=== PATIENT | male | born 1975 | race African-American/Black ===

== ENCOUNTER 2018-10-07 10:44 | Emergency (ER) | payer MEDICAID ==
[~2018-10-07] VITALS: Ht 182.9 cm; Wt 68.0 kg
--- NOTE | 2018-10-07 10:45 | NUR ---
ED Nurse Note: Patient brought in by ambulance from the street with bilateral feet pain. patient also reports pain on the left chest pain, stomach pain. patient is alert awake x4 ambulatory, breathing unlabored and even.
[2018-10-07 11:16] VITALS: BP 116/72
[2018-10-07 11:19] LABS: APPEARANCE,URINE CLEAR; BILIRUBIN, URINE NEGATIVE (NEGATIVE); GLUCOSE, URINE (UA) NEGATIVE (NEGATIVE); KETONES,URINE NEGATIVE (NEGATIVE); LEUKOCYTE ESTERASE ,URINE 1+ (NEGATIVE); NITRITE,URINE NEGATIVE (NEGATIVE); PH,URINE 5 (4.5-8.0); PROTEIN,URINE NEGATIVE (NEGATIVE); UROBILINOGEN,URINE 4 MG/DL (0.0-1.0)
[2018-10-07 11:20] LABS: BASOPHILS % (AUTO) 0.7 % (0.0-2.0); EOSINOPHILS % (AUTO) 2.3 % (0.0-3.0); HEMATOCRIT 36.2 % (42.0-52.0); HEMOGLOBIN 11.2 G/DL (14.2-18.0); LYMPHOCYTES % (AUTO) 33.4 % (20.0-45.0); MEAN CORPUSCULAR VOLUME 74 FL (80-99); MONOCYTES % (AUTO) 11.1 % (1.0-10.0); NEUTROPHILS % (AUTO) 52.6 % (45.0-75.0); PLATELET COUNT 311 K/UL (150-450); RED BLOOD COUNT 4.85 M/UL (4.70-6.10); RED CELL DISTRIBUTION WIDTH 12.6 % (11.6-14.8); WHITE BLOOD COUNT 5.6 K/UL (4.8-10.8)
[2018-10-07 11:21] LABS: COLOR,URINE YELLOW
[2018-10-07 11:41] LABS: ANION GAP 9 mmol/L (5-15); BLOOD UREA NITROGEN 10 mg/dL (7-18); CALCIUM 8.8 MG/DL (8.5-10.1); CARBON DIOXIDE 28 MMOL/L (21-32); CHLORIDE 108 MMOL/L (98-107); CREATININE 0.8 MG/DL (0.55-1.30); POTASSIUM 4.2 MMOL/L (3.5-5.1); SODIUM 145 MMOL/L (136-145)
[2018-10-07 11:45] LABS: ALANINE AMINOTRANSFERASE 18 U/L (12-78); ALBUMIN/GLOBULIN RATIO 0.8 (1.0-2.7); ALKALINE PHOSPHATASE 108 U/L (46-116); ASPARTATE AMINO TRANSFERASE 15 U/L (15-37); BILIRUBIN,TOTAL 0.2 MG/DL (0.2-1.0)
--- NOTE | 2018-10-07 12:33 | Emergency Room Report ---
History of Present Illness General Chief Complaint: Abdominal Pain Source: Patient Present Illness HPI Disclaimer: Please note that this report is being documented using Pocket technology. This can lead to erroneous entry secondary to incorrect interpretation by the dictating instrument. HPI: 42-year-old male with history of schizophrenia presents by EMS for evaluation of foot pain and abdominal/flank pain. The patient states that he has been having intermittent left upper and lower quadrant abdominal pain for some time now. Cannot fully quantify how long. He is calling a kidney pain and says he has had some intermittent stomach pain as well. Currently states the symptoms are resolved. He states that he had a colonoscopy sometime ago where they found polyps and he was concerned that it might be related to that. He denies history of kidney stones, hematuria, dysuria, penile discharge, testicular pain, nausea, vomiting or diarrhea. Otherwise he has been afebrile, no cough. He has been compliant with his Haldol for schizophrenia. He is requesting social work assistance to get back to his half-way and is requesting something to eat. States his foot pain is likely related to his excessive walking and he cannot recall a specific injury. PMH: Schizophrenia PSH: Denies Allergies: Denies Social Hx: Regular tobacco use, denies alcohol use, denies drug use Allergies: Coded Allergies: No Known Allergies (Unverified , 10/07/18) Nursing Documentation-PMH Past Medical History: No History, Except For Hx Cancer: Yes - stomache CA History Of Psychiatric Problem: Yes - shizophrenia Review of Systems All Other Systems: negative except mentioned in HPI Physical Exam Vital Signs Date Time Temp Pulse Resp B/P (MAP) Pulse Ox O2 Delivery O2 Flow Rate FiO2 10/07/18 10:37 98.6 100 18 132/88 (103) 99 Room Air General: Awake and alert, no acute distress, pleasant HEENT: NC/AT. EOMI. PERRLA. Moist mucous membranes Neck: Supple, trachea midline Chest Wall: No tenderness, no deformity Cardiovascular: RRR. S1 and S2 normal. No murmur appreciated Resp: Normal work of breathing. No cough, wheezing or crackles appreciated Abdomen: Abdomen is soft, nondistended. Nontender Skin: Intact. No abrasions, laceration or rash over the exposed skin MSK: Normal tone and bulk. Moving all extremities. No obvious deformity. Feet are atraumatic, no edema, no erythema. There is no pinpoint tenderness over the plantar or dorsal aspect of the feet. No rash appreciated. Neuro: Awake and alert. Mentating appropriately. Back/Spine: There is no CVA or flank tenderness Medical Decision Making Diagnostic Impression: Primary Impression: Foot pain, bilateral Additional Impression: Abdominal pain ER Course 42-year-old male with history of schizo for any presents for evaluation of bilateral foot pain and flank pain. Symptoms are now resolved. He states that his foot pain is likely related to excessive walking. He is requesting help finding his homeless half-way as he cannot remember exactly where it was and he would like to return there. Lab work was performed which is returned largely unremarkable. The patient has no history of kidney stones, no hematuria, no signs of denisse urinary tract infection and no clinical evidence of pyelonephritis. His lab work is otherwise within normal limits with white count , renal function, electrolytes within normal limits. At this time he is requesting something to eat which we will provide and we will also arrange for social work to help him get back to his half-way. He can follow-up with outpatient clinic as needed. Discussed reasons to return to the emergency department. He understands and agrees with this treatment plan. Laboratory Tests Test 10/07/18 11:00 White Blood Count 5.6 K/UL (4.8-10.8) Red Blood Count 4.85 M/UL (4.70-6.10) Hemoglobin 11.2 G/DL (14.2-18.0) L Hematocrit 36.2 % (42.0-52.0) L Mean Corpuscular Volume 74 FL (80-99) L Mean Corpuscular Hemoglobin 23.2 PG (27.0-31.0) L Mean Corpuscular Hemoglobin Concent 31.1 G/DL (32.0-36.0) L Red Cell Distribution Width 12.6 % (11.6-14.8) Platelet Count 311 K/UL (150-450) Mean Platelet Volume 5.6 FL (6.5-10.1) L Neutrophils (%) (Auto) 52.6 % (45.0-75.0) Lymphocytes (%) (Auto) 33.4 % (20.0-45.0) Monocytes (%) (Auto) 11.1 % (1.0-10.0) H Eosinophils (%) (Auto) 2.3 % (0.0-3.0) Basophils (%) (Auto) 0.7 % (0.0-2.0) Urine Color Yellow Urine Appearance Clear Urine pH 5 (4.5-8.0) Urine Specific [place] 1.020 (1.005-1.035) Urine Protein Negative (NEGATIVE) Urine Glucose (UA) Negative (NEGATIVE) Urine Ketones Negative (NEGATIVE) Urine Blood Negative (NEGATIVE) Urine Nitrite Negative (NEGATIVE) Urine Bilirubin Negative (NEGATIVE) Urine Urobilinogen 4 MG/DL (0.0-1.0) H Urine Leukocyte Esterase 1+ (NEGATIVE) H Urine RBC 0-2 /HPF (0 - 0) H Urine WBC 0-2 /HPF (0 - 0) Urine Squamous Epithelial Cells Occasional /LPF Urine Bacteria Occasional /HPF (NONE) Sodium Level 145 MMOL/L (136-145) Potassium Level 4.2 MMOL/L (3.5-5.1) Chloride Level 108 MMOL/L (98-107) H Carbon Dioxide Level 28 MMOL/L (21-32) Anion Gap 9 mmol/L (5-15) Blood Urea Nitrogen 10 mg/dL (7-18) Creatinine 0.8 MG/DL (0.55-1.30) Estimate Glomerular Filtration Rate > 60 mL/min (>60) Glucose Level 119 MG/DL (74-106) H Calcium Level 8.8 MG/DL (8.5-10.1) Total Bilirubin 0.2 MG/DL (0.2-1.0) Aspartate Amino Transferase (AST) 15 U/L (15-37) Alanine Aminotransferase (ALT) 18 U/L (12-78) Alkaline Phosphatase 108 U/L (46-116) Total Protein 6.7 G/DL (6.4-8.2) Albumin 3.0 G/DL (3.4-5.0) L Globulin 3.7 g/dL Albumin/Globulin Ratio 0.8 (1.0-2.7) L Lipase 89 U/L (73-393) Last Vital Signs Date Time Temp Pulse Resp B/P (MAP) Pulse Ox O2 Delivery O2 Flow Rate FiO2 10/07/18 11:17 85 21 Room Air 10/07/18 11:16 98.6 116/72 100 Disposition: HOME, SELF-CARE Condition: Stable Scripts Ibuprofen* (MOTRIN*) 600 Mg Tablet 600 MG ORAL Q6H PRN for For Pain, #30 TAB 0 Refills Prov: George Sebastian MD 10/07/18 Referrals: [facility]ERR[facility] (PCP) George Sebastian MD Oct 07, 2018 12:33
--- NOTE | 2018-10-07 13:15 | NUR ---
ED Nurse Note: Melissa homeless coordinator was contacted regarding homeless resources. After care instructions, including referral to community resources were given. Patient verbalized understanding of After care instructions.
[2018-10-07] MEDS ORDERED: IBUPROFEN600 MG ORAL (13:51)
--- NOTE | 2018-10-07 14:02 | NUR ---
ED Nurse Note: Melissa smith coordinator is by the bedside
--- NOTE | 2018-10-07 14:21 | NUR ---
ED Nurse Note: [facility] pharmacy is delivering the prescribed medication.
--- NOTE | 2018-10-07 14:40 | NUR ---
ED Nurse Note: Patient reports that he wants to go to the correction where he came from, near [facility], per Melissa homeless coordinator, it is [facility], [address], [place] [address]. Patient reports that he really wants to go to the correction that he came from, he reports that he wants to go here. RN picked up bus tokens from [place] nursing office, printed direction to take bus to this address. Melissa homeless coordinator told patient that he can get a taxi cab for 30 miles radius. patient reports he does not want bus token, he wants taxi. [facility] nursing dry cleaning supervisor called, was told to get taxi voucher from [facility] nursing office. [facility] went to get taxi voucher. patient provided with 1 t shirt. patient had other clothings appropriate to weather. patient provided with water, juice and sandwiches.
[2018-10-07 14:55] VITALS: BP 116/72
--- NOTE | 2018-10-07 14:56 | NUR ---
Homeless Discharge: Patient is being discharged from medical care by DR EDMONDSON Awake, alert and oriented x4. After care instructions, including referral to community resources were given. Patient verbalized understanding of After care instructions; Medication delivered from [facility]. patient given instructions to take medications as ordered. patient verbalized understanding. Patient signed patient consent in the medical record for patient destination upon discharge. patient is being discharged to [facility] halfway, where patient claims that he is from. All medical devices such as IV and ID band were removed without complication. Patient ambulated out with all personal belongings with steady gait. [place] cab provided for transportation, patient provided with taxi voucher.
== END 2018-10-07 14:56 | disposition home or self-care (01) ==
LOC: EDBD 10:44 → EMR 12:12
DX: R10.9 Unspecified abdominal pain (principal); M79.672 Pain in left foot; M79.671 Pain in right foot; F20.9 Schizophrenia, unspecified; Z85.028 Personal history of other malignant neoplasm of stomach; Z59.0 Homelessness
CPT/HCPCS: 36415; 80053; 81003; 83690; 85025; 99283

== ENCOUNTER 2020-04-14 14:21 | Emergency (ER) | payer MEDICAID ==
[~2020-04-14] VITALS: Ht 182.9 cm; Wt 72.6 kg
[~2020-04-14 14:21] MED LIST: IBUPROFEN600 MG ORAL
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
--- NOTE | 2020-04-14 16:25 | NUR ---
pt arrived for inability to walk. pt able to place weight on legs and transfer with minimal assistance. pt covered in feces on torso, groin, arms, legs.
--- NOTE | 2020-04-14 16:27 | NUR ---
pt cleaned by staff head to toe. iv placed, labs sent, fluids initiated per eMAR. pt calm & cooperative. resting in gurney. pt oriented to self, birthday, place. pt unable to care for self. states he was laying instreet and transferred self by crawling.
[2020-04-14 17:19] LABS: BASOPHILS % (AUTO) 1.3 % (0.0-2.0); EOSINOPHILS % (AUTO) 1.2 % (0.0-3.0); HEMATOCRIT 47.9 % (42.0-52.0); HEMOGLOBIN 14.8 G/DL (14.2-18.0); LYMPHOCYTES % (AUTO) 37.1 % (20.0-45.0); MEAN CORPUSCULAR VOLUME 75 FL (80-99); MONOCYTES % (AUTO) 8.6 % (1.0-10.0); NEUTROPHILS % (AUTO) 51.6 % (45.0-75.0); PLATELET COUNT 331 K/UL (150-450); RED BLOOD COUNT 6.37 M/UL (4.70-6.10); RED CELL DISTRIBUTION WIDTH 14.7 % (11.6-14.8); WHITE BLOOD COUNT 10.3 K/UL (4.8-10.8)
[2020-04-14 18:00] LABS: ALANINE AMINOTRANSFERASE 22 U/L (12-78); ALKALINE PHOSPHATASE 114 U/L (46-116); ANION GAP 10 mmol/L (5-15); ASPARTATE AMINO TRANSFERASE 33 U/L (15-37); BILIRUBIN,TOTAL 0.2 MG/DL (0.2-1.0); BLOOD UREA NITROGEN 7 mg/dL (7-18); CALCIUM 9.5 MG/DL (8.5-10.1); CARBON DIOXIDE 28 MMOL/L (21-32); CHLORIDE 104 MMOL/L (98-107); CREATININE 1.1 MG/DL (0.55-1.30); POTASSIUM 4.7 MMOL/L (3.5-5.1); SODIUM 142 MMOL/L (136-145)
--- NOTE | 2020-04-14 19:03 | NUR ---
1630 to 190: primary RN with another critical pt and understaffed ER. unable to update pt record or see pt. 1899: vitals updated. pt stable. in bed. will continue to monitor.
[2020-04-14 19:16] VITALS: BP 123/74
--- NOTE | 2020-04-14 19:40 | NUR ---
ED Nurse Note: Recieved report from am nurse Virgilio, pt is here for weakness and found on street, pt is lying in bed awake, alert and oriented to name, place and states "i dont know why they brought me here, I didnt ask to come, was told in report pt was not ambulatory, pt is ambulating in room and to sink, pt denies any behavioral issues, denies suicidal or homicidal ideations and denies any hallucinations, pt does state he has hx of schizophrenia and keeps asking for his clothing to go, pt provider informed, will continue to monitor while pt re-assessed by ASSOCIATE PROFESSOR OF ENGLISH and given dispo instructions.
[2020-04-14 22:10] VITALS: BP 123/74
--- NOTE | 2020-04-14 22:10 | NUR ---
ED Nurse Note: While preparing pt for discharge he has noted to have left facility, pt was given clean dry clothing, including shoes, he does state he is homeless but "im ok", states he sleeps "here and there", pt continues to be ambulatory with no problems noted, pt asked for sandwich and juice, given while eating pt informed to tell nurse when completed to be properly discharged, went back to room and pt gone, was told by maintenance shop clerk pt noted going out door, pt not present in er lobby or outside, informed, pt was discharged by md but left without instructions.
== END 2020-04-14 22:10 | disposition home or self-care (01) ==
LOC: EDBD 14:21 → EMR 15:11
DX: R53.1 Weakness (principal); F20.9 Schizophrenia, unspecified; Z85.028 Personal history of other malignant neoplasm of stomach
CPT/HCPCS: 36415; 80053; 84484; 85025; 93005; 96360; G0480; J7030; Z7502; 99284